=== PATIENT | female | born 1935 | race Caucasian/White ===

== ENCOUNTER 2018-01-02 19:57 | Emergency (ER) | payer MEDICARE ==
--- OUTSIDE RECORDS SUMMARY | 2018-01-02 20:18 | XMS REPORT ---
:1935 External Reference #:[id number] Author Organization [email or web address] Address [address] [place] [address] Phone [phone] Care Team Providers Name Role Phone Nico Floyd M.D. Primary Care Physician Unavailable Payers Type Date Identification Numbers Payment Provider Subscriber Medicare Primary Policy Number: [id number] Medicare - NGS Rocio Zunigaine PayID: [id number] [address] [place] [address] Commercial Policy Number: [id number] [place] Plan Rocio Gleason Arellano PayID: [id number] [address] [place] [address] Problems Date Description Provider Status Onset: Essential hypertension Active Onset: H/O: TIA Active Note: 04/1998 Onset: Hypercholesterolemia Active Onset: Osteoporosis Active Onset: 10/29/2017 Internal hordeolum Karin Morton O.D. Active Onset: 01/02/2016 Presence of intraocular lens Lizandro Mendoza M.D. Active Onset: 01/02/2016 Keratoconjunctivitis sicca, not Lizandro Mendoza M.D. Active specified as Sjogren's Onset: 01/02/2016 Ischemic optic neuropathy Lizandro Mendoza M.D. Active Family History Date Family Member(s) Problem(s) Comments Father Cataract Mother Cataract Mother Optic Atrophy Social History Type Date Description Comments Marital Status Legal Status: Occupation [employer] Work Status Retired ETOH Use Denies alcohol use Smoking Patient has never smoked Recreational Drug Use Denies Drug Use Daily Caffeine Consumes on average 2 cups of regular coffee per day Allergies, Adverse Reactions, Alerts Date Description Reaction Status Severity Comments 12/27/2015 Streptomycin active Medications Medication Date Status Form Strength Qnty SIG Indications Ordering Provider Bepreve Active Solution 1.5% 10ml 1 drop H00.025 Karin Elmore 2-3x/day Praveen, for itchy O.D. eyes Myrbetriq Active Tablets ER 50mg Unknown 000 24HR Amlodipine Active Capsules 5-20mg take 1 Unknown Besylate/Benazep 000 capsule ril by mouth Hydrochloride once daily Omeprazole Active Capsules 20mg Unknown [address] Celecoxib Active Capsules 200mg Unknown 000 Alendronate Active Tablets 70mg Unknown Sodium 000 Acyclovir Active Tablets 400mg Unknown 000 Ibuprofen Active Tablets 600mg take 1 Unknown 000 tablet by mouth every 6 hours Cefuroxime Hx Tablets 500mg Unknown Axetil 000 - 017 Simvastatin Hx Tablets 40mg Unknown 000 - 017 Results Description No Information Procedures Date CPT Code Description Status 10/29/2017 73054 Est Patient Intermediate Exam Completed 11/19/2016 94692 Determination Of Refractive State Completed 11/19/2016 41819 Est Patient Comprehensive Exam Completed 01/02/2016 58731 Est Patient Comprehensive Exam Completed 12/29/2013 53455 Determination Of Refractive State Completed 12/29/2013 96662 Est Patient Comprehensive Exam Completed 03/03/2013 07542 Est Patient Intermediate Exam Completed 08/27/2012 04462 Extracapsular Cataract Extraction W/Intraocular Lens Completed 08/14/2012 16451 Ophthalmic Biometry Completed 08/04/2012 13159 Est Patient Intermediate Exam Completed 01/02/2012 75942 Extracapsular Cataract Extraction W/Intraocular Lens Completed 12/17/2011 92805 Ophthalmic Biometry Completed 12/17/2011 39502 Scanning Computerized Opthalmic Diagnostic Posterior Completed Seg Retina 12/17/2011 79893 Computerized Corneal Topography Completed 12/11/2011 70595 Est Patient Intermediate Exam Completed 06/19/2011 95719 Determination Of Refractive State Completed 06/19/2011 74800 Est Patient Comprehensive Exam Completed 06/19/2010 99872 Est Patient Comprehensive Exam Completed 06/19/2010 42971 Determination Of Refractive State Completed 09/06/2009 88776 Iridotomy/Iredectomy By Laser Surgery Completed 09/02/2009 13970 Iridotomy/Iredectomy By Laser Surgery Completed 08/23/2009 48580 Est Patient Intermediate Exam Completed 06/10/2009 19607 Est Patient Intermediate Exam Completed 02/23/2009 19110 Gonioscopy Completed 02/23/2009 41467 Est Patient Intermediate Exam Completed 08/31/2008 02117 Fundus Photography With Interpretation And Report Completed 08/31/2008 39582 Determination Of Refractive State Completed 08/31/2008 54584 Est Patient Comprehensive Exam Completed 12/10/2007 15318 Determination Of Refractive State Completed 12/10/2007 75177 Est Patient Comprehensive Exam Completed 01/14/2007 72322 Determination Of Refractive State Completed 01/14/2007 56312 Est Patient Comprehensive Exam Completed 01/21/2004 17004 Determination Of Refractive State Completed 01/21/2004 33554 Est Patient Comprehensive Exam Completed Encounters Type Date Location Provider CPT E/M Dx Office Visit 12/17/2011 12:30p Lizandro Mendoza MD, Lizandro Mendoza, 89157 366.16 pc M.[place] 366.16 Office Visit 06/13/2009 9:10a Lizandro Mendoza MD, Ninfa Gonsalez, 32607 918.1 pc O.D. Office Visit 08/23/2008 9:00a Lizandro Mendoza MD, Jade Coleman O.D. 56167 372.72 pc Plan of Care 12/19/2017 - Lizandro Mendoza M.D.H47.012 Ischemic optic neuropathy, left eyeComments:Smoking can increase the risk of developing or worsening any eye related disease, as well as affect your overall health. If you are a smoker, we strongly recommend that you quit.If you are not a smoker, we strongly recommend that you do not start.Follow up:2 Year Follow Up Diagnostic Refraction You can expect to have your eyes dilated at your next visit.If Dr. Mendoza orders any additional testing, it may require extra time. We recommend that you bring sunglasses, as dilation drops often make you light sensitive until they wear off. We always recommend you bring someone to drive you home if you are uncomfortable driving with your eyes dilated. If you have any questions before your next visit, feel free to call our office at .W96.1 Presence of intraocular lensComments:The artificial lens implants in both eyes appear to be stable at this time.H16.223 Keratoconjunct sicca, not specified as Sjogren's, bilateral
[2018-01-02 20:36] LABS: ABS Basophils 0.1 10^3/ul (0-0.2); ABS Eosinophils 0.3 10^3/ul (0-0.6); ABS Lymphocytes 3.6 10^3/ul (1.0-4.8); ABS Monocytes 0.6 10^3/ul (0-0.8); ABS Neutrophils 3.8 10^3/ul (1.5-7.7); ABS Nucleated RBC 0 10^3/ul; Eosinophil % 3.8 % (0-6); Hematocrit 40 % (35-47); Hemoglobin 13.7 g/dl (12.0-16.0); Lymphocyte % 42.8 % (25-47); Mean Corpuscular HGB Conc 34 g/dl (31-36); Mean Corpuscular Hemoglobin 32 pg (27-31); Mean Corpuscular Volume 92 fL (80-97); Mean Platelet Volume 7.3 um3 (7.4-10.4); Nucleated Red Blood Cells % 0.1; Platelet Count 255 10^3/ul (150-450); Red Blood Count 4.34 10^6/ul (4.00-5.40); Red Cell Distribution Width 14 % (10.5-15); White Blood Count 8.3 10^3/ul (3.5-10.8)
[2018-01-02 20:53] LABS: EGFR Non-African American 59.5 (>60)
--- NOTE | 2018-01-03 01:01 | ED ---
Hypertension - HPI Summary HPI Summary: This is Grady wyatt Perdomo documenting for attending physician Roshan Durham MD. This patient is a 82 year old F presenting to [facility] accompanied by her with a chief complaint of a unusually high BP reading. Pt states she took her bp at 1830 and it was 190 systolic. Pt states she takes her bp intermittently and that tonight she felt general malaise which prompted her to take her bp. Hx CVA. Patient reports nausea and tightness in her throat. Patient denies pain. Pt sees a neurologist regularly and has an MRI scheduled tomorrow - History of Current Complaint Chief Complaint: EDGeneral Stated Complaint: LIGHT HEADED DIZZY EVAL BP Hx Obtained From: Patient Onset/Duration: Started Hours Ago, Resolved Timing: Intermittent Alleviating Factor(s): Other - spontaneous Associated Signs & Symptoms: Other: - nausea - Allergies/Home Medications Allergies/Adverse Reactions: Allergies Allergy/AdvReac Type Severity Reaction Status Date / Time streptomycin Allergy Anaphylatic Verified 01/03/18 00:36 Shock PMH/Surg Hx/FS Hx/Imm Hx Cardiovascular History: Reports: Hx Hypertension - ON MEDICATION, Other Cardiovascular Problems/Disorders - STROKE 8 YEARS AGO Respiratory History: Reports: Other Respiratory Problems/Disorders - TB 40 YEARS AGO History: Reports: Hx Kidney Stones - SMALL KIDNEY STONE PRESENTLY BEING FOLLOWED Musculoskeletal History: Reports: Hx Arthritis Sensory History: Reports: Hx Cataracts, Hx Contacts or Glasses - GLASSES, Hx Glaucoma Denies: Hx Hearing Aid Opthamlomology History: Reports: Hx Cataracts, Hx Contacts or Glasses - GLASSES , Hx Glaucoma Neurological History: Reports: Hx CVA - Surgical History Surgery Procedure, Year, and Place: 2010 R HIP SURGERY [facility] Hx Anesthesia Reactions: No - Immunization History Date of Tetanus Vaccine: UTD Date of Influenza Vaccine: 2012 Immunizations Up to Date: Yes Infectious Disease History: No Infectious Disease History: Denies: History Other Infectious Disease, Traveled Outside the [place] in Last 30 Days - Family History Known Family History: Positive: Hypertension - Social History Alcohol Use: None Substance Use Type: Reports: None Smoking Status (MU): Never Smoked Tobacco Review of Systems Constitutional: Other - general malaise Positive: Other - throat tightness Positive: Other - elevated BP Musculoskeletal: Negative - pain All Other Systems Reviewed And Are Negative: Yes Physical Exam - Summary Physical Exam Summary: VITAL SIGNS: Reviewed. GENERAL: Patient is a well-developed and nourished female who is lying comfortable in the stretcher. Patient is not in any acute respiratory distress. HEAD AND FACE: No signs of trauma. No ecchymosis, hematomas or skull depressions. No sinus tenderness. EYES: PERRLA, EOMI x 2, No injected conjunctiva, no nystagmus. EARS: Hearing grossly intact. Ear canals and tympanic membranes are within normal limits. MOUTH: Oropharynx within normal limits. NECK: Supple, trachea is midline, no adenopathy, no JVD, no carotid bruit, no c- spine tenderness, neck with full ROM. CHEST: Symmetric, no tenderness at palpation LUNGS: Clear to auscultation bilaterally. No wheezing or crackles. CVS: Regular rate and rhythm, S1 and S2 present, no murmurs or gallops appreciated. ABDOMEN: Soft, non-tender. No signs of distention. No rebound no guarding, and no masses palpated. Bowel sounds are normal. EXTREMITIES: FROM in all major joints, no edema, no cyanosis or clubbing. NEURO: Alert and oriented x 3. No acute neurological deficits. Speech is normal and follows commands. SKIN: Dry and warm Triage Information Reviewed: Yes Vital Signs On Initial Exam: Initial Vitals Temp Pulse Resp BP Pulse Ox 97.8 F 105 18 194/102 99 01/02/18 20:01 01/02/18 20:01 01/02/18 20:01 01/02/18 20:01 01/02/18 20:01 Vital Signs Reviewed: Yes Diagnostics - Vital Signs Vital Signs Temp Pulse Resp BP Pulse Ox 01/02/18 22:00 97.1 F 99 18 178/112 96 01/02/18 20:01 97.8 F 105 18 194/102 99 - Laboratory Lab Results: Lab Results 01/02/18 01/02/18 Range/Units 20:28 20:28 WBC 8.3 (3.5-10.8) 10^3/ul RBC 4.34 (4.00-5.40) 10^6/ul Hgb 13.7 (12.0-16.0) g/dl Hct 40 (35-47) % MCV 92 (80-97) fL MCH 32 H (27-31) pg MCHC 34 (31-36) g/dl RDW 14 (10.5-15) % Plt Count 255 (150-450) 10^3/ul MPV 7.3 L (7.4-10.4) um3 Neut % (Auto) 45.2 (38-83) % Lymph % (Auto) 42.8 (25-47) % [place] % (Auto) 7.4 H (0-7) % Eos % (Auto) 3.8 (0-6) % Baso % (Auto) 0.8 (0-2) % Absolute Neuts (auto) 3.8 (1.5-7.7) 10^3/ul Absolute Lymphs (auto) 3.6 (1.0-4.8) 10^3/ul Absolute Monos (auto) 0.6 (0-0.8) 10^3/ul Absolute Eos (auto) 0.3 (0-0.6) 10^3/ul Absolute Basos (auto) 0.1 (0-0.2) 10^3/ul Absolute Nucleated RBC 0 10^3/ul Nucleated RBC % 0.1 Sodium 134 L (135-145) mmol/L Potassium 4.5 (3.5-5.0) mmol/L Chloride 99 L (101-111) mmol/L Carbon Dioxide 28 (22-32) mmol/L Anion Gap 7 (2-11) mmol/L BUN 22 (6-24) mg/dL Creatinine 0.91 (0.51-0.95) mg/dL Est GFR ( Amer) 72.0 (>60) Est GFR (Non-Af Amer) 59.5 (>60) BUN/Creatinine Ratio 24.2 H (8-20) Glucose 129 H (70-100) mg/dL Calcium 9.8 (8.6-10.3) mg/dL Total Bilirubin 0.40 (0.2-1.0) mg/dL AST 24 (13-39) U/L ALT 14 (7-52) U/L Alkaline Phosphatase 68 (34-104) U/L Total Protein 7.7 (6.4-8.9) g/dL Albumin 4.4 (3.2-5.2) g/dL Globulin 3.3 (2-4) g/dL Albumin/Globulin Ratio 1.3 (1-3) Result Diagrams: 01/02/18 20:28 01/02/18 20:28 Lab Statement: Any lab studies that have been ordered have been reviewed, and results considered in the medical decision making process. Re-Evaluation - Re-Evaluation First Eval Re-Evaluation Time: 00:57 Change: Improved Comment: Pt's BP is 165/116. Second Eval Re-Evaluation Time: 01:57 Change: Improved Comment: Pts BP improved after she received Xanax. Her other sx are most likely due to her anxiety. She will be d/c home and will monitor her bp. Hypertension Course/Dx - Course Assessment/Plan: This patient is a 82 year old F presenting to [facility] accompanied by her with a chief complaint of a unusually high BP reading. Pt states she took her bp at 1830 and it was 190 systolic. Pt states she takes her bp intermittently and that tonight she felt general malaise which prompted her to take her bp. Hx CVA. Patient reports nausea and tightness in her throat. Patient denies pain. Pt sees a neurologist regularly and has an MRI scheduled tomorrow. Test results with no significant abnormalities. In the ED course the patient was given Xanax, which alleviated her sx. Patient will be discharged with and follow up from PCP. The patient is agreeable with this plan. - Diagnoses Provider Diagnoses: HTN (hypertension), Anxiety Discharge - Sign-Out/Discharge Documenting (check all that apply): Patient Departure - Discharge Plan Condition: Stable Disposition: HOME Patient Education Materials: Hypertensive Crisis (ED), Anxiety (ED) Referrals: Nico Floyd MD [Primary Care Provider] - 2 Days Additional Instructions: RETURN TO EMERGENCY DEPARTMENT FOR ANY NEW OR WORSENING SYMPTOMS Attestation Statement Scribe Attestation: This is Grady wyatt documenting for attending physician Roshan Durham MD. User Type: Provider with [employer] Provider Attestation: The documentation recorded by the [employer] accurately reflects the service I personally performed and the decisions made by me.
[2018-01-03] MEDS ORDERED: ALPRAZolam TAB* 0.5 MG PO ONE (01:03)
[2018-01-03 02:04] VITALS: BP 146/83
== END 2018-01-03 02:09 | disposition home or self-care (01) ==
LOC: ED 19:57
DX: I10 Essential (primary) hypertension (principal); F41.9 Anxiety disorder, unspecified; R11.0 Nausea
CPT/HCPCS: 36415; 80053; 85025; 93005; 99282; A9270-GY

== ENCOUNTER 2021-06-02 07:37 | Observation (INO) ==
[2021-06-02 08:11] LABS: ABS Basophils 0.1 10^3/ul (0-0.2); ABS Eosinophils 0.3 10^3/ul (0-0.6); ABS Lymphocytes 2.2 10^3/ul (1.0-4.8); ABS Monocytes 0.6 10^3/ul (0-0.8); ABS Neutrophils 2.8 10^3/ul (1.5-7.7); Hematocrit 37 % (35-47); Hemoglobin 12.8 g/dL (12.0-16.0); Lymphocyte % 36.9 %; Mean Corpuscular HGB Conc 35 g/dL (31-36); Mean Corpuscular Hemoglobin 32 pg (27-31); Mean Corpuscular Volume 93 fL (80-97); Mean Platelet Volume 6.7 fL (7.4-10.4); Platelet Count 269 10^3/uL (150-450); Red Cell Distribution Width 13 % (10-15)
[2021-06-02 08:28] LABS: Albumin 4.1 g/dL (3.2-5.2); Albumin/Globulin Ratio 1.8 (1-3); Calcium 9.1 mg/dL (8.6-10.3); Globulin 2.3 g/dL (2-4); Potassium 3.8 mmol/L (3.5-5.0); Total Bilirubin 0.6 mg/dL (0.2-1.0); Total Protein 6.4 g/dL (6.4-8.9); eGFR CKD-EPI 73.7 (>60)
[2021-06-02 08:29] LABS: Troponin I 0.01 ng/mL (<0.03)
[2021-06-02] MEDS ORDERED: NF:Mirabegron 50 mg ER TAB (NF) PO SCH (11:00)
[2021-06-02] MEDS ORDERED: Aspirin EC 81 mg TAB.EC (enteric coated) PO SCH (11:00)
[2021-06-02 13:06] VITALS: BP 128/62
[2021-06-02 18:02] LABS: TSH Ultra Thyroid Stim Horm 1.43 mcIU/mL (0.34-5.60)
[2021-06-02] MEDS ORDERED: Enoxaparin 40 MG/0.4 ML SYR SUBCUT SCH (21:00)
== END 2021-06-02 17:58 | disposition home or self-care (01) ==
LOC: ED 07:37 → EDHOLD 07:37 → MEDTELE 11:31
PROVIDERS: ADMIT Hospitalist; ATTEND Hospitalist